=== PATIENT | female | born 1995 | race Two or more races ===

== ENCOUNTER 2022-07-05 22:15 | Emergency (ER) | payer SELFPAY ==
[~2022-07-05] VITALS: Ht 167.6 cm; Wt 75.0 kg
[2022-07-05 22:29] VITALS: BP 127/86
[2022-07-05 23:49] LABS: BASOPHILS % 0.4 % (0.0-2.0); EOSINOPHILS % 2.2 % (0.0-5.0); LYMPHOCYTES % 22.6 % (20.0-50.0); MEAN CORPUSCULAR HEMOGLOBIN 33.4 pg (28.0-32.0); MEAN CORPUSCULAR VOLUME 95.7 fL (81.0-99.0); MEAN PLATELET VOLUME 8.5 fl (7.4-10.4); MONOCYTES % 5.6 % (2.0-8.0); NEUTROPHILS % 69.2 % (40.0-76.0); PLATELET 243 x1000/uL (130-400); RED BLOOD CELL COUNT 4.49 mill/uL (4.2-5.4); RED CELL DISTRIBUTION WIDTH 13.1 % (11.6-14.6)
[2022-07-05 23:52] LABS: CHLORIDE 106 mEq/L (98-107)
[2022-07-06 00:04] LABS: B-HCG QUANTITATIVE < 1 mIU/mL (<3); ETHANOL BLOOD 140 mg/dL
[2022-07-06] MEDS ORDERED: ONDANSETRON 4MG ODT PO ONE (05:15)
== END 2022-07-06 06:35 | disposition home or self-care (01) ==
LOC: ER 22:15
DX: F10.129 Alcohol abuse with intoxication, unspecified (principal); Y90.6 Blood alcohol level of 120-199 mg/100 ml; R42 Dizziness and giddiness; R11.0 Nausea
CPT/HCPCS: 36415; 80053; 80320; 84702; 85025; 99283; G0480